=== PATIENT | male | born 1950 | race African-American/Black ===

== ENCOUNTER 2020-08-27 11:56 | Observation (INO) | payer OTHER ==
[2020-08-27] VITALS (10 sets, daily range): BP systolic 112–159; BP diastolic 84–93
[~2020-08-27] VITALS: Ht 175.3 cm; Wt 83.5 kg
[2020-08-27 12:24] LABS: ABSOLUTE NEUTROPHILS 4.2 thou/uL (1.4-8.2); BASOPHILS 1.1 % (0.0-2.0); EOSINOPHILS 3.3 % (0.0-3.0); HEMATOCRIT 41.1 % (42.0-52.0); HEMOGLOBIN 13.5 gm/dL (14.0-18.0); MCHC 32.8 g/dL (28.0-37.0); MCV 85.4 fL (80.0-100.0); MONOCYTES 5.4 % (1.0-8.0); PLATELET COUNT 293 thou/uL (150-400); POLYS 65.2 % (36.0-66.0); RBC 4.82 mil/uL (4.50-6.00); RDW 15.8 % (10.5-14.5); WBC 6.4 thou/uL (4.0-11.0)
[2020-08-27] MEDS ORDERED: PLAVIX 75 MG TA75 MG PO (12:35)
[2020-08-27] MEDS ORDERED: NEURONTIN 300M300 M2 PO (12:35)
[2020-08-27] MEDS ORDERED: CYPROHEPTADINE 44 MG PO (12:35)
[2020-08-27] MEDS ORDERED: ASA81BEC PO (12:35)
[2020-08-27] MEDS ORDERED: VERAPAMIL HCL 880 M1 PO (12:36)
[2020-08-27] MEDS ORDERED: DESYREL150 MG PO (12:36)
[2020-08-27] MEDS ORDERED: NITROSTAT0.4 M1 SUBLING (12:37)
[2020-08-27] MEDS ORDERED: RANOLAZINE ER1000 MG PO (12:37)
[2020-08-27] MEDS ORDERED: ZETIA10 MG PO (12:38)
[2020-08-27] MEDS ORDERED: IMDUR 30 MG TAB30 M1 PO (12:38)
[2020-08-27 12:39] LABS: ANION GAP 8 mmol/L (7-16); BUN 22 mg/dL (7-18); CALCIUM 8.8 mg/dL (8.5-10.1); CHLORIDE 104 mmol/L (98-107); CO2 25 mmol/L (21-32); CREATININE 1.6 mg/dL (0.7-1.3); GLUCOSE 138 mg/dL (74-106); SODIUM 137 mmol/L (136-145)
[2020-08-27] MEDS ORDERED: OMEPRAZOLE 20 M20 M1 PO (12:39)
[2020-08-27] MEDS ORDERED: VENTOLIN HFA INH8 GM INH (12:39)
[2020-08-27] MEDS ORDERED: OLODATEROL/TIOTROP INH (12:40)
[2020-08-27 12:49] LABS: ALBUMIN 3.5 g/dL (3.4-5.0); SGOT 15 U/L (15-37); SGPT 21 U/L (16-63); TOTAL BILIRUBIN 0.3 mg/dL (0.2-1.0); TOTAL PROTEIN 7.5 g/dL (6.4-8.2); TROPONIN-I <0.06 ng/mL (<0.06)
[2020-08-27 14:30] LABS: AMYLASE 58 U/L (25-115); DIRECT BILIRUBIN < 0.1 mg/dL (<0.1-0.2); LIPASE 46 U/L (73-393); PHOSPHORUS 3.1 mg/dL (2.6-4.7)
--- NOTE | 2020-08-27 15:37 | EKG ---
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: JCHAIHAILEY : 1950 Requested By: Marshall Yadav Order Number: [id number] MD: Zack Kumar Measurements Intervals [place] Rate: 66 P: 28 [place]: 171 QRS: -31 QRSD: 88 T: 68 QT: 415 QTc: 435 Interpretive Statements Sinus rhythm Left axis deviation Abnormal R-wave progression, early transition Compared to ECG 01/18/1993 07:27:00 Left-axis deviation now present Sinus bradycardia no longer present Poor R-wave progression no longer present Electronically Signed On 08-27-2020 15:36:58 CDT by Zack Kumar [email or web address] <ELECTRONICALLY SIGNED> By: Zack Kumar MD, FACC 08/27/20 1536 1202 1202 Zack Kumar MD, [facility] /EPI
--- NOTE | 2020-08-27 18:31 | CATHLAB ---
[facility] [place] [address] INVASIVE PROCEDURE REPORT Name: BRIANNE SHORT Room #: 206-P ADM Arnold MJesse#: [id number] Admission: 08/27/20 Attend Phys: Jorge Thomas MD Discharge: Date of : 50 Report #: [id number] THIS REPORT FOR: cc: Marcello Mclean MD, Vandu MD Lundgren, Craig H. MD [facility] ~ APPROVED REPORT Study performed: 08/27/2020 16:07:54 Patient Details Patient Status: ED Room #: The patient is a 70 year-old male Event Personnel Harpal Murphy Therapy Manager, Nya Norman RTR Monitor, Genoveva Altman Patterson, Kirsten RN Procedures Performed Art Access - R femoral artery* Left Heart Cath w/or w/o Coronaries [id number] [facility] Place w/wo Plasty Single LAD 739534 Hemostasis w/ Mynx 90446 Initial Mod Sed Same Phys/QHP Gr5y 791946 36686 Mod Sed Same Phys/QHP Ea 953030 Procedure Narrative The patient was brought urgently to the Cardiac Catheterization Laboratory and was prepped and draped in a sterile manner. The Right Groin^ was infiltrated with 1% Lidocaine subcutaneous anesthesia. A PINNACLE 6FR Sheath #[id number] sheath was inserted into the RFA^. Coronary angiography was performed using coronary diagnostic catheters. The right coronary system was accessed and visualized with a JR4 catheter. The left coronary system was accessed and visualized with a JL4 catheter. The left ventricle was accessed and visualized with a ANGLED PIGTAIL catheter. Closure device was deployed with a Fr MYNXGRIP 6/7F #[id number]. The patient tolerated the procedure well and there were no complications associated with the procedure. There was no hematoma. No LV Gram was performed due to creatnine levels. Intraoperative Conscious Sedation Sedation start time: 16:37 Case end Time: 17:36 Fentanyl 100 mcg Versed 2.0 mg [facility] [address] [place] [address] INVASIVE PROCEDURE REPORT Name: BRIANNE SHORT Room #: 206-P [facility] IN [facility].#: [id number] Admission: 08/27/20 Attend Phys: Jorge Thomas MD Discharge: Date of : 50 Report #: [id number] Fluoro Time: 8.21 minutes Dose: DAP 8347.00 cGycm2 1118 mGy Contrast Type and Amount: Visipaque 110 ml Coronary Angiography The patient's coronary anatomy is right dominant. Diagnostic Cath Left Main Normal left main LAD Critical 95% proximal LAD stenosis. Mild mid vessel LAD plaquing (20%) Diagonal 1 Normal first diagonal branch Circumflex Large but nondominant circumflex OM1 Normal OM1 OM2 Minimal proximal plaquing in a small OM 2 OM3 Distally arising third marginal branch, normal Right Coronary Dominant right coronary with scattered mild mid vessel plaquing (20%) R PDA Large posterior descending, angiographically normal RPLV Moderate size posterior lateral branch with minimal plaquing Hemodynamics The aortic pressure is 129/88 mmHg with a mean of 105 mmHg. The left ventricular pressure is 134/26 mmHg with a mean of mmHg. The left ventricular end diastolic pressure is 36 mmHg. There was no gradient across the aortic valve upon pullback. PCI Technique Lesion Anticoagulation was achieved with Heparin, Integrilin. Patient was preloaded with Plavix. Percutaneous coronary intervention was performed on the proximal left anterior descending artery segment. The lesion stenosis prior to intervention was 99% with SHARMILA 3 flow. A LAUNCHER 6FR EBU 3.5 #[id number] Guide Catheter was used to engage the ostium. A Luge Wire .014 x 182CM #[id number] Interventional Guidewire was used to cross the lesion. BALLOON DILATION A Balloon catheter Euphora RX 2.5 x 12 #[id number] was inserted and inflated up to 10.00atm for 16seconds. Additional Inflation: 14.00atm for 19seconds. Additional Inflation: 16.00atm for 17seconds. STENT DEPLOYMENT A drug-eluting stent RESOLUTE CODY RX 3.0 X 18 #[id number] was inserted and inflated up to 14.00atm for 21seconds. [facility] [address] [place] [address] INVASIVE PROCEDURE REPORT Name: BRIANNE SHORT Room #: 206-P [facility] IN M.R.#: [id number] Admission: 08/27/20 Attend Phys: Jorge Thomas MD Discharge: Date of : 50 Report #: [id number] POST STENT DEPLOYMENT BALLOON DILATION A Balloon catheter TREK NC RX 3.0 X 15 #[id number] was inserted and inflated up to 19.00atm for 24seconds. Additional Inflation: 19.00atm for 18seconds. Final angiography reveals 0 % stenosis with SHARMILA 3 flow. Conclusion 1. Normal left main 2. Critical proximal LAD stenosis stented with a 3.0 x 18 mm Resolute stent 3. Minimal plaquing in the circumflex and right coronary arteries. Right coronary dominant circulation. <ELECTRONICALLY SIGNED> By: Harpal Murphy MD, [facility] 08/27/201830 30 30 Harpal Murphy MD, FAC /INF
--- NOTE | 2020-08-27 19:25 | NUR ---
PT CARE ASSUMED AT 1800. ASSESSMENTS CHARTED. MEDICATIONS CHARTED. LAC IV. SINUS RHYTHM. RT GROIN, MYNX. STENT X 1, LAD. HEMOSTASIS AT 1745, BEDREST UNTIL 2044.
--- NOTE | 2020-08-28 02:48 | NUR ---
ASSUMED PT CARE AT 1900, PT IS AWAKE, ALERT AND ORIENTEDX4, DENIES PAIN OR SOB, SR ON TELE, R. GROIN SITE CDI, NO HEMATOMA, FLUIDS INFUSING PER ORDERS, ASSESSMENTS CHARTED, NO NEEDS AT THIS TIME, WILL CONTINUE TO MONITOR PER POC
[2020-08-28 03:42] LABS: HEMATOCRIT 38.7 % (42.0-52.0); HEMOGLOBIN 12.4 gm/dL (14.0-18.0); MCH 27.7 pg (26.0-34.0); MCHC 32.1 g/dL (28.0-37.0); MCV 86.4 fL (80.0-100.0); RBC 4.47 mil/uL (4.50-6.00); RDW 16.1 % (10.5-14.5); WBC 6.7 thou/uL (4.0-11.0)
[2020-08-28 04:08] VITALS: BP 132/93
[2020-08-28 04:09] LABS: CALCIUM 8.3 mg/dL (8.5-10.1); CREATININE 1.4 mg/dL (0.7-1.3); POTASSIUM 4.1 mmol/L (3.5-5.1); TROPONIN-I 0.06 ng/mL (<0.06)
[2020-08-28 04:36] LABS: CHOLESTEROL 208 mg/dL (<200); HDL CHOLESTEROL 69 mg/dL (>40); LDL CHOLESTEROL 112 mg/dL (<100); TRIGLYCERIDE 137 mg/dL (<150); VLDL 27 mg/dL (<40)
[2020-08-28 04:38] LABS: SERUM ASSESSMENT Clear
[2020-08-28 07:50] VITALS: BP 134/82
[2020-08-28] MEDS ORDERED: REPATHA SU140 MG/1 M SUBQ (09:07)
[2020-08-28] MEDS ORDERED: METOPROLOL SUCC50 MG PO (09:07)
[2020-08-28 11:37] VITALS: BP 134/82
--- NOTE | 2020-08-28 11:55 | 2DMMODE ---
[facility] [place] [address] 2 D/M-MODE ECHOCARDIOGRAM Name: BRIANNE SHORT Room #: 206-P ADM Arnold M.R.#: [id number] Admission: 08/27/20 Attend Phys: Jorge Thomas MD Discharge: Date of : 50 Report #: [id number] THIS REPORT FOR: cc: Marcello Mclean MD, Vandu MD Lundgren,Harpal Rosenthal MD [facility] ~ APPROVED REPORT Study performed: 08/28/2020 08:20:00 EXAM: Comprehensive 2D, Doppler, and color-flow Echocardiogram Patient Location: Bedside Room #: 206 Status: on-call BSA: 1.99 HR: 70 bpm BP: 132/93 mmHg Rhythm: NSR Other Information Study Quality: Fair Technically limited study due to COPD. Indications Unstable angina, s/p PCI. Hx: HTN, HLP, DM, COPD. Echo Enhancing Agent Indication: Endocardial border delineation Agent(s) / Amount(s) Used: Optison 4 cc 2D Dimensions IVSd: 11.76 (7-11mm) LVOT Diam: 21.31 (18-24mm) LVDd: 44.32 mm PWd: 10.26 (7-11mm) LVDs: 33.25 (25-40mm) Left Atrium: 27.84 (27-40mm) Aortic Root: 31.34 mm Volumes Left Atrial Volume (Systole) Single Plane 4CH: 35.72 mL Single Plane 2CH: 31.23 mL LA ESV Index: 19.00 mL/m2 [facility] [place] [place] [address] 2 D/M-MODE ECHOCARDIOGRAM Name: BRIANNE SHORT Room #: 206-P ADM IN M.R.#: [id number] Admission: 08/27/20 Attend Phys: Jorge Thomas MD Discharge: Date of : 50 Report #: [id number] Aortic Valve AoV Peak Marc.: 1.15 m/s AO Peak Gr.: 5.33 mmHg LVOT Max P.99 mmHg LVOT Max V: 0.86 m/s YONAS Vmax: 2.67 cm2 Mitral Valve E/A Ratio: 0.6 MV Decel. Time: 270.36 ms MV E Max Marc.: 0.39 m/s MV A Marc.: 0.64 m/s MV PHT: 78.41 ms IVRT: 141.87 ms Pulmonary Valve PV Peak Marc.: 0.97 m/s PV Peak Gr.: 3.79 mmHg Tricuspid Valve RAP Estimate: 5.00 mmHg Left Ventricle The left ventricle is normal size. There is normal LV segmental wall motion. Mild basal septal hypertrophy is present. Left ventricular systolic function is normal. LVEF is 55%. Mild diastolic dysfunction Right Ventricle The right ventricle is normal size. The right ventricular systolic function is normal. Atria The left atrium size is normal. The right atrium size is normal. Aortic Valve The aortic valve is grossly normal. No aortic regurgitation is present. There is no aortic valvular stenosis. Mitral Valve The mitral valve is normal in structure. There is no mitral valve regurgitation No evidence of mitral valve stenosis. Tricuspid Valve The tricuspid valve is normal in structure. There is no tricuspid valve regurgitation noted. Unable to assess PA pressure. Pulmonic Valve [facility] [address] [place] [address] 2 D/M-MODE ECHOCARDIOGRAM Name: DEJABRIANNE DARSHAN Room #: 206-[facility] IN .R.#: [id number] Admission: 08/27/20 Attend Phys: Jorge Thomas MD Discharge: Date of : 50 Report #: [id number] Pulmonic valve is not well visualized. Great Vessels The aortic root is normal in size. Ascending aorta is not well visualized. IVC is normal in size and collapses >50% with inspiration. Pericardium There is no pericardial effusion. <Conclusion> Left ventricular systolic function is normal. There is normal LV segmental wall motion. LVEF is 55%. Mild diastolic dysfunction The aortic valve is grossly normal. No aortic regurgitation or stenosis The mitral valve is normal in structure. No mitral valve regurgitation Unable to assess pulmonary artery pressure. There is no pericardial effusion. <ELECTRONICALLY SIGNED> By: Harpal Murphy MD, [facility] 08/28/20 1155 1155 1155 Harpal Murphy MD, FAC /INF
--- NOTE | 2020-08-28 12:32 | EKG ---
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 : 1950 Requested By: Harpal Murphy Order Number: [id number] MD: Harpal Murphy Measurements Intervals [place] Rate: 63 P: 37 [place]: 175 QRS: -25 QRSD: 87 T: 73 QT: 417 QTc: 427 Interpretive Statements Sinus rhythm Borderline left axis deviation Abnormal R-wave progression, early transition Borderline T wave abnormalities Compared to ECG 08/27/2020 12:02:22 No significant changes found Electronically Signed On 08-28-2020 12:31:53 CDT by Harpal Murphy [email or web address] <ELECTRONICALLY SIGNED> By: Harpal Murphy MD, [facility] 08/28/20 1231 1846 1846 Harpal Murphy MD, [facility] /EPI
--- NOTE | 2020-08-28 12:34 | EKG ---
[address] [place] [address] ELECTROCARDIOGRAM REPORT Name: BRIANNE SHORT Room #: 206-[facility].#: [id number] Admission: 08/27/20 Attend Phys: Jorge Thomas MD Discharge: 08/28/20 Date of : 50 Report #: [id number] 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: BEULAH : 1950 Requested By: Harpal Murphy Order Number: [id number] MD: Harpal Murphy Measurements Intervals [place] Rate: 73 P: 63 DC: 157 QRS: -29 QRSD: 84 T: 105 QT: 487 QTc: 537 Interpretive Statements Sinus rhythm Borderline left axis deviation Nonspecific T abnrm, anterolateral leads Compared to ECG 08/27/2020 18:46:37 No significant change was found Electronically Signed On 08-28-2020 12:34:09 CDT by Harpal Murphy [email or web address] <ELECTRONICALLY SIGNED> By: Harpal Murphy MD, [facility] 08/28/20 1234 5 5 Harpal Murphy MD, [facility] /EPI
[2020-08-29 05:36] LABS: GLYCOHEMOGLOBIN (HGB A1C) 6.1 % (4.8-5.6)
== END 2020-08-28 12:03 | disposition home or self-care (01) ==
LOC: ER 11:56 → EROBS 13:53 → 2N 13:53
PROVIDERS: Emergency Medicine; Nurse Practitioner; ADMIT Hospitalist; ATTEND Hospitalist
DX: I25.110 Atherosclerotic heart disease of native coronary artery with unstable angina pectoris (principal); I10 Essential (primary) hypertension; E78.5 Hyperlipidemia, unspecified; J44.9 Chronic obstructive pulmonary disease, unspecified; E11.40 Type 2 diabetes mellitus with diabetic neuropathy, unspecified; K21.9 Gastro-esophageal reflux disease without esophagitis; Z87.891 Personal history of nicotine dependence; Z79.82 Long term (current) use of aspirin; Z79.899 Other long term (current) drug therapy